=== PATIENT | male | born 1965 | race Caucasian/White ===

== ENCOUNTER 2020-05-10 09:06 | Emergency (ER) | payer OTHER, SELFPAY ==
[2020-05-10] MEDS ORDERED: Morphine 4 MG/ML VIAL ONE (09:25)
[2020-05-10] MEDS ORDERED: Adacel (T-DAP) 0.5 ML SYRINGE ONE (09:25)
--- NOTE | 2020-05-10 09:34 | RAD ---
Radiograph left hand 2 views: DATE: 05/10/2020 Time: 9:13 AM HISTORY: 54-year-old male status post crush injury to left hand FINDINGS: Multiple fractured, significantly displaced, and comminuted, fractures of proximal diaphyses and prox imal metaphyses, of third, fourth, and fifth metacarpals, with significant angulations. Mildly displaced and mildly angulated fractures of fourth and fifth metacarpal necks. Nondisplaced or minimally displaced fracture of third metacarpal head and neck. Greater than 100% bone width fracture of second metacarpal mid diaphysis, with overlap and angulation . Longitudinal and oblique minimally displaced fracture lucencies throughout the second proximal phalan x, from base to head, and involving diaphysis. Multiple soft tissue lucencies at the dorsum of the hand. IMPRESSION: 1. Multiple, significantly displaced fractures of second, third, fourth, and fifth metacarpals. 2. Significantly displaced fracture of second metacarpal midshaft. 3. Minimally displaced or nondisplaced fracture throughout the length of the second proximal phalanx. 4. Lacerations at the dorsum of hand.
[2020-05-10 09:48] LABS: #Eosinphils 0.2 thou/uL (0.0-0.7); #Lymphocytes 1.8 thou/uL (1.20-3.40); #Monocytes 0.4 thou/uL (0.11-0.59); #Neutrophils 2.1 thou/uL (1.40-6.50); %Basophils 0.3 % (0.0-1.0); %Eosinophils 3.8 % (0.0-10.0); %Lymphocytes 40.2 % (21.0-51.0); %Monocytes 8.5 % (0.0-10.0); %Neutrophils 47.2 % (42.0-75.0); Hemoglobin 14.4 g/dL (14.0-18.0); Mean Corpuscular HGB CONC 34.1 g/dL (32.0-36.0); Mean Corpuscular Hemoglobin 34.3 pg (27.0-31.0); Mean Platelet Volume 9.1 fL (7.4-10.4); Platelet Count 157 thou/uL (130-400); Red Blood Cell (RBC) Count 4.19 mill/uL (4.70-6.10); White Blood Cell (WBC) Count 4.5 thou/uL (4.8-10.8)
[2020-05-10 09:54] LABS: INR-International Normal Ratio 1.3; PTT 31.5 sec (22.9-36.1); Prothrombin Time 16.4 sec (12.0-14.7)
[2020-05-10 10:10] LABS: ALT (SGPT) 46 U/L (8-55); AST (SGOT) 36 U/L (5-34); Albumin 4.9 g/dL (3.5-5.0); Alkaline Phosphatase 58 U/L (40-110); Anion Gap 16 mmol/L (10-20); BUN (Urea Nitrogen) 12 mg/dL (8.4-25.7); Bilirubin, Total 1.1 mg/dL (0.2-1.2); Calc. Creatinine Clearance 0 mL/min (70-130); Calcium 10.2 mg/dL (7.8-10.44); Carbon Dioxide 22 mmol/L (22-29); Chloride 106 mmol/L (98-107); Estimated GFR-MDRD 55; Globulin 2.5 g/dL (2.4-3.5); Glucose 111 mg/dL (70-105); Potassium 3.8 mmol/L (3.5-5.1); Protein, Total 7.4 g/dL (6.0-8.3); Sodium 140 mmol/L (136-145)
[2020-05-10] MEDS ORDERED: Fentanyl 100 MCG/2 ML VIAL ONE (10:23)
== END 2020-05-10 11:45 | disposition short-term general hospital (02) ==
LOC: ERS 09:06
DX: S62.321B Displaced fracture of shaft of second metacarpal bone, left hand, initial encounter for open fracture (principal); S62.333B Displaced fracture of neck of third metacarpal bone, left hand, initial encounter for open fracture; S62.335B Displaced fracture of neck of fourth metacarpal bone, left hand, initial encounter for open fracture; S62.337B Displaced fracture of neck of fifth metacarpal bone, left hand, initial encounter for open fracture; I48.91 Unspecified atrial fibrillation; I48.92 Unspecified atrial flutter; Z79.899 Other long term (current) drug therapy; W31.89XA Contact with other specified machinery, initial encounter; Y92.69 Other specified industrial and construction area as the place of occurrence of the external cause; Y99.0 Civilian activity done for income or pay
CPT/HCPCS: 36415; 80053; 85025; 85610; 85730; 86850; 86900; 86901; 90471; 90715; 93005; 96365; 96375; G0390; J0690; J2270; J3010